=== PATIENT | male | born 2000 | race Caucasian/White ===

== ENCOUNTER → 2022-08-09 15:39 | Outpatient (BNVA) | payer OTHER, SELFPAY | PROVIDERS: Visit Provider Nurse Practitioner | DX: Z02.83 Encounter for blood-alcohol and blood-drug test (principal); S62.521A Displaced fracture of distal phalanx of right thumb, initial encounter for closed fracture; X58.XXXA Exposure to other specified factors, initial encounter | CPT/HCPCS: 73130; 80307 ==

== ENCOUNTER → 2022-08-24 09:57 | Outpatient (BNVA) | payer OTHER, SELFPAY | PROVIDERS: Visit Provider Orthopaedic Surgery | DX: S62.630D Displaced fracture of distal phalanx of right index finger, subsequent encounter for fracture with routine healing (principal); X58.XXXD Exposure to other specified factors, subsequent encounter | CPT/HCPCS: 73130 ==